=== PATIENT | male | born 1950 | race Caucasian/White ===

== ENCOUNTER 2019-10-22 13:55 | Emergency (ER) | payer MEDICARE, OTHER ==
[~2019-10-22] VITALS: Ht 172.7 cm; Wt 72.6 kg
[2019-10-22] MEDS ORDERED: TETANUS/DIPHTHERIA TOX ADULT 0.5 ML SYR ONE (14:39)
[2019-10-22] MEDS ORDERED: TETRACAINE HCL 0.5% OPTH SOLN 4 ML BTL OP ONE (14:45)
[2019-10-22] MEDS ORDERED: HYDROCODONE/APAP 10MG-325MG TAB PO ONE (14:45)
== END 2019-10-22 14:42 | disposition home or self-care (01) ==
LOC: ER 13:55
DX: S80.12XA Contusion of left lower leg, initial encounter (principal); W22.8XXA Striking against or struck by other objects, initial encounter; I10 Essential (primary) hypertension
CPT/HCPCS: 90471; 90714; 99282

== ENCOUNTER → 2020-04-19 | Day surgery (SDC) | payer MEDICARE, OTHER ==
[2020-04-14 14:21] LABS: BLOOD UREA NITROGEN 16 mg/dL (7-26); BUN/CREATININE RATIO 15 (6-25); CARBON DIOXIDE 24 mmol/L (22-29); CHLORIDE 109 mmol/L (98-107); CREATININE, SERUM 1.05 mg/dL (0.72-1.25); EST GLOMERULAR FILTRATION RATE > 60 ML/MIN (60-); GLUCOSE 97 mg/dL (74-118); SODIUM 143 mmol/L (136-145)
--- NOTE | 2020-04-14 15:01 | Diagnostic Imaging Report ---
EXAMINATION: CHEST 2 VIEWS INDICATION: Pre-operative COMPARISON: None FINDINGS: LINES/TUBES:None LUNGS:The lungs are mildly hyperinflated. No focal consolidation or pulmonary edema. PLEURA: Mild left pleural parenchymal thickening/scarring. No pleural effusion or pneumothorax. MEDIASTINUM:The cardiomediastinal silhouette appears normal in size and shape. Atherosclerotic calcifications of the thoracic aorta. BONES/SOFT TISSUES:No acute osseous injury. ABDOMEN:No free air under the diaphragm. IMPRESSION: Mildly hyperinflated lungs. No focal pneumonia or pulmonary edema. Signed by: Ander Nuno MD on 04/14/2020 2:58 PM
[2020-04-14 15:04] LABS: BASOPHILS % 0.4 % (0.0-1.0); EOSINOPHILS # (AUTO) 0.1 (0.0-0.4); EOSINOPHILS % 0.9 % (0.0-6.0); HEMOGLOBIN 13.1 g/dL (14.0-18.0); LYMPHOCYTES % 17.7 % (18.0-39.1); MEAN CORPUSCULAR VOLUME 90.7 fL (81-99); MONOCYTES # (AUTO) 0.7 (0.2-0.8); NEUTROPHILS # (AUTO) 3.8 (2.1-6.9); NEUTROPHILS % 67.6 % (38.7-80.0); PLATELET COUNT 234 x10e3/uL (140-360); RED BLOOD COUNT 4.52 x10e6/uL (4.3-5.7); RED CELL DISTRIBUTION WIDTH 14.8 % (11.7-14.4)
[~2020-04-19] MED LIST: BREO ELLIPTA 21 EACH; CEFAZOLIN SOD 1 GM/NS 50ML 100 ML IV ONE; CRESTOR10 MG; DEXAMETHASONE SOD PHOS INJ 4 MG/ML VIAL ONE; EPHEDRINE SULFATE INJ 50 MG/ML VIAL ONE; EPINEPHRINE 1 MG/ML 30ML VIAL ONE; HYZAAR 50-12.51 EACH; LIDOCAINE HCL 2% LOCAL 20 ML VIAL ONE; LIDOCAINE HCL 2% LOCAL INJ 5 ML SDV VIAL INJ ONE; ONDANSETRON HCL INJ 2MG/ML 2ML 2 MG/ML VIAL ONE; PROPOFOL IV EMULSION 10 MG/ML 20 ML VIAL ONE; ROPIVACAINE 0.5% 5 MG/ML 30 ML SDV ONE; SEVOFLURANE INHAL SOLN 250 ML PEN BTL ONE; SPIRIVA18 MCG INH
[2020-04-19 09:50] VITALS: BP 128/67
--- NOTE | 2020-04-26 19:06 | Operative Report ---
DATE OF PROCEDURE: SURGEON: Darrion Hussein MD PREOPERATIVE DIAGNOSES: Right shoulder labral tear, right shoulder impingement. 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 OPERATION PROCEDURE PERFORMED: The patient underwent a right shoulder examination under anesthesia, right shoulder arthroscopy, right shoulder arthroscopic debridement of synovitis, right shoulder arthroscopic debridement of the partially torn labrum, right shoulder chondroplasty of the humeral head and glenoid, right shoulder debridement of a partial rotator cuff tear, right shoulder removal of an intra-articular loose body, right shoulder arthroscopic subacromial decompression and acromioplasty, and right shoulder arthroscopic biceps tenodesis. PATIENT PORTAL CONCIERGE: There was no assistant mechanic. ANESTHESIA: General endotracheal intubation anesthesia and regional block. IV FLUIDS: Per the anesthesia record. BLOOD LOSS: Minimal. COMPLICATIONS: None. BRIEF DESCRIPTION OF THE PATIENT'S OPERATIVE PROCEDURE: Mr. Bradley was taken to the operative room, placed in supine position on the operating table. Following induction of general anesthesia as well as the endotracheal intubation, the patient's right upper extremity was examined under anesthesia. He was found to have a normal-appearing shoulder. The shoulder had full passive range of motion of the shoulder joint and there was no evidence of instability. The patient's upper extremity was prepped and draped in surgical fashion. Standard posterior lateral anterior portals were created without difficulty. The scope was placed in the shoulder joint atraumatically. Examination of the glenohumeral articulation demonstrated chondromalacia of the humeral head and glenoid. There was also synovitis within the shoulder joint. There was an intra-articular loose body in the inferior pouch. There was a partial rotator cuff tear at the takeoff of the supraspinatus tendon. A probe was placed in the shoulder joint and the labrum was found to be partially torn as well as attached from the glenoid. The shaver was placed in the shoulder joint and the synovitis was debrided. Chondroplasties of the humeral head and glenoid were also performed at this time. The leading edge of the supraspinatus tendon was also debrided to a healthy tissue. The shaver was also used to remove the intra-articular loose body from the inferior pouch. The shaver was then used to debride the rotator interval. Sutures were shuttled through the shoulder to capture the biceps tendon to bring the tendon into the debrided rotator interval. The biceps tendon was then detached from the superior rim of the labrum. The remaining labrum was debrided. The shoulder was deflated with sterile normal saline. The scope was placed in subacromial space and significant bursal inflammation was encountered. A lateral portal was created from an outside-in technique. Significant bursal tissue was encountered. A bursectomy was performed taking care to prevent injury to the sutures passing through the rotator interval. The sutures were then easily identified and tied firmly over the rotator interval in the subacromial space. The patient did have a downward sloping acromion with some irritation to the rotator cuff tissue. The coracoacromial ligament was resected and aggressive acromioplasty was performed. The shoulder was then deflated with sterile normal saline. All portal sites were closed in a single layer fashion. Sterile dressings were applied. The patient was provided a shoulder immobilizer, awakened, and taken to the postanesthesia care unit in stable condition. MD PREETI Egan/LIZZETH /[id number]
== END | disposition home or self-care (01) ==
LOC: OR 05:27
PROVIDERS: ATTEND Specialist
DX: S46.091A Other injury of muscle(s) and tendon(s) of the rotator cuff of right shoulder, initial encounter (principal); S43.431A Superior glenoid labrum lesion of right shoulder, initial encounter; M19.011 Primary osteoarthritis, right shoulder; M65.811 Other synovitis and tenosynovitis, right shoulder; M94.211 Chondromalacia, right shoulder; M24.011 Loose body in right shoulder; E78.00 Pure hypercholesterolemia, unspecified; I10 Essential (primary) hypertension; M46.92 Unspecified inflammatory spondylopathy, cervical region; J44.9 Chronic obstructive pulmonary disease, unspecified; E78.5 Hyperlipidemia, unspecified; X58.XXXA Exposure to other specified factors, initial encounter; Z85.828 Personal history of other malignant neoplasm of skin; Z87.891 Personal history of nicotine dependence
CPT/HCPCS: 29828; 36415; 71046; 80048; 85025; 93005; J0690; J1100; J2001 ×2; J2405; J2704; J2795; U0002